=== PATIENT | female | born 1965 | race Hispanic/Latino ===

== ENCOUNTER 2019-08-06 15:08 | Emergency (ER) | payer SELFPAY ==
[~2019-08-06 15:08] MED LIST: ACET1TAB12 PO; CIPR-278 PO; SULF1TAB42 PO
[2019-08-06] MEDS ORDERED: ASPIRIN 325 MG TABLET ONE (15:16)
[2019-08-06 15:26] LABS: BASOPHILS % (AUTO) 0.3 % (0.0-5.0); EOSINOPHILS % (AUTO) 1.9 % (0.0-8.0); HEMATOCRIT 40.9 % (36-48); LYMPHOCYTES % (AUTO) 48.1 % (21.0-51.0); MEAN CORPUSCULAR HEMOGLOBIN 30.5 pg (27.0-33.0); MEAN CORPUSCULAR HGB CONC 34.2 g/dL (32.0-36.0); MEAN CORPUSCULAR VOLUME 89.1 fL (79-99); MONOCYTES % (AUTO) 7.6 % (3.0-13.0); NEUTROPHILS % (AUTO) 41.6 % (40.0-77.0); PLATELET COUNT (AUTO) 333 K/uL (130-400); RED BLOOD CELL COUNT(AUTO) 4.59 MIL/uL (4.00-5.50); RED CELL DISTRIBUTION WIDTH 11.7 % (11.0-15.5); WHITE BLOOD COUNT (AUTO) 12.6 K/uL (4.8-10.8)
[2019-08-06 15:35] LABS: CREATININE 0.9 mg/dL (0.5-1.5); POTASSIUM 3.7 mmol/L (3.5-5.1)
[2019-08-06 15:37] LABS: INR 0.95 (0.85-1.15); PARTIAL THROMBOPLASTIN TIME 29.5 SEC (26.3-35.5); PROTHROMBIN TIME 10.3 SEC (9.6-11.6)
[2019-08-06 15:39] LABS: ALBUMIN 4.1 g/dL (3.5-5.0); BILIRUBIN,TOTAL 0.3 mg/dL (0.2-1.0); TOTAL PROTEIN, SERUM 8.5 g/dL (6.0-8.3)
[2019-08-06 16:26] LABS: B-TYPE NATRIURETIC PEPTIDE 14 pg/mL (0-100)
== END 2019-08-06 18:40 | disposition home or self-care (01) ==
LOC: EDH 15:08
DX: R07.89 Other chest pain (principal)
CPT/HCPCS: 36415; 71045; 80053; 82550; 83880; 84484; 85025; 85610; 85730; 93005

== ENCOUNTER 2019-08-31 10:32 | Emergency (ER) | payer MEDICAID, OTHER ==
[2019-08-31] MEDS ORDERED: KETOROLAC TROMETHAMINE 15MG/ML ONE (11:40)
[2019-08-31] MEDS ORDERED: CYCLOBENZAPRINE HCL 10 MG TABLET ONE (11:41)
== END 2019-08-31 13:51 | disposition home or self-care (01) ==
LOC: EDH 10:32
DX: S23.3XXA Sprain of ligaments of thoracic spine, initial encounter (principal); X58.XXXA Exposure to other specified factors, initial encounter; Y93.89 Activity, other specified; Y92.89 Other specified places as the place of occurrence of the external cause; Y99.8 Other external cause status
CPT/HCPCS: 36415; 71045; 80053; 81001; 82150; 82550; 83690; 84484; 85025; 93005; 96374; 99285; J1885

== ENCOUNTER 2019-09-12 21:31 | Inpatient (IN) | payer MEDICAID, OTHER ==
[~2019-09-12] VITALS: Ht 160 cm; Wt 81.6 kg
[2019-09-12] MEDS ORDERED: ONDANSETRON HCL 4 MG/2 ML VIAL ONE (22:06)
[2019-09-12 22:26] LABS: BASOPHILS % (AUTO) 0.4 % (0.0-5.0); EOSINOPHILS % (AUTO) 0.5 % (0.0-8.0); HEMATOCRIT 37.7 % (36-48); LYMPHOCYTES % (AUTO) 19.3 % (21.0-51.0); MEAN CORPUSCULAR HEMOGLOBIN 30.4 pg (27.0-33.0); MEAN CORPUSCULAR VOLUME 86.9 fL (79-99); MONOCYTES % (AUTO) 8.5 % (3.0-13.0); NEUTROPHILS % (AUTO) 67.1 % (40.0-77.0); PLATELET COUNT (AUTO) 274 K/uL (130-400); RED BLOOD CELL COUNT(AUTO) 4.34 MIL/uL (4.00-5.50); RED CELL DISTRIBUTION WIDTH 11.4 % (11.0-15.5); WHITE BLOOD COUNT (AUTO) 13.8 K/uL (4.8-10.8)
[2019-09-12 22:47] LABS: ALBUMIN 3.5 g/dL (3.5-5.0); BILIRUBIN,TOTAL 0.5 mg/dL (0.2-1.0); CREATININE 2.5 mg/dL (0.5-1.5); POTASSIUM 3.1 mmol/L (3.5-5.1)
[2019-09-12 22:56] LABS: APPEARANCE,URINE Clear (CLEAR); BILIRUBIN,URINE Negative (NEGATIVE); COLOR,URINE Yellow (YELLOW); GLUCOSE, URINE (UA) Negative (NEGATIVE); KETONES,URINE Negative (NEGATIVE); LEUKOCYTE ESTERASE ,URINE Trace (NEGATIVE); NITRATE,URINE Negative (NEGATIVE); OCCULT BLOOD,URINE Trace (NEGATIVE); PH,URINE 5.5 (5.0-8.0); PROTEIN,URINE Trace mg/dL (NEGATIVE); UROBILINOGEN,URINE 0.2 mg/dL (0.2-1.0)
[2019-09-12 23:33] LABS: BACTERIA,URINE None Seen /HPF (None Seen); SQUAMOUS EPITHELIAL CELL,UR Few /HPF (0-2)
[2019-09-13] MEDS ORDERED: MORPHINE SULFATE 4 MG/1ML SYG ONE (00:15)
[2019-09-13] MEDS: SODIUM CHLORIDE 0.9% 1000ML 1,000 ML IV SCH ×7 (00:22→23:51)
[2019-09-13] MEDS: POTASSIUM CHLORIDE 20 MEQ ERTAB PO SCH ×2 (00:30→23:52)
[2019-09-13] MEDS ORDERED: ACETAMINOPHEN 325 MG TAB PO PRN (00:30)
[2019-09-13] MEDS ORDERED: LACTULOSE 20 GM/30 ML UDCUP PO PRN (00:30)
[2019-09-13] MEDS ORDERED: POTASSIUM CHLORIDE 10% ELIXIR 20 MEQ/15 ML UDCUP ONE (01:30)
[2019-09-13 02:25] VITALS: BP 144/74
[2019-09-13] MEDS ORDERED: ONDA8TAB65 PO (03:07)
[2019-09-13] MEDS: MORPHINE SULFATE 2 MG/ML 1ML SYG IV PRN (04:04)
[2019-09-13 04:12] VITALS: BP 119/61
[2019-09-13 05:37] LABS: BASOPHILS % (AUTO) 0.4 % (0.0-5.0); EOSINOPHILS % (AUTO) 0.6 % (0.0-8.0); LYMPHOCYTES % (AUTO) 23.5 % (21.0-51.0); MEAN CORPUSCULAR HEMOGLOBIN 30.2 pg (27.0-33.0); MEAN CORPUSCULAR HGB CONC 34.1 g/dL (32.0-36.0); MEAN CORPUSCULAR VOLUME 88.5 fL (79-99); MONOCYTES % (AUTO) 8.2 % (3.0-13.0); NEUTROPHILS % (AUTO) 63.6 % (40.0-77.0); PLATELET COUNT (AUTO) 239 K/uL (130-400); RED BLOOD CELL COUNT(AUTO) 3.84 MIL/uL (4.00-5.50); RED CELL DISTRIBUTION WIDTH 11.5 % (11.0-15.5)
[2019-09-13 06:06] LABS: CREATININE 2.2 mg/dL (0.5-1.5); POTASSIUM 3.8 mmol/L (3.5-5.1)
[2019-09-13 08:00] VITALS: BP 130/67
[2019-09-13] MEDS ORDERED: PAMIDRONATE DISODIUM 90MG VIAL 90 MG in SODIUM CHLORIDE 0.9% 1000ML 1,000 ML IV SCH (08:45)
[2019-09-13] MEDS: ENOXAPARIN SODIUM 40 MG/0.4 ML SYRINGE SQ SCH (10:54)
[2019-09-13] MEDS: FAMOTIDINE 20MG TAB 20 MG TAB PO SCH ×2 (10:55→19:25)
[2019-09-13 11:38] VITALS: BP 138/72
[2019-09-13] MEDS: ONDANSETRON HCL 4 MG/2 ML VIAL IV PRN (13:25)
--- NOTE | 2019-09-13 15:00 | NUR ---
FLEET ENEMA X 1 GIVEN
[2019-09-13 16:00] VITALS: BP 154/76
[2019-09-13] MEDS: LACTULOSE 20 GM/30 ML UDCUP PO SCH ×3 (16:00→23:15)
--- NOTE | 2019-09-13 16:56 | NUR ---
NICOLE PLAN PATIENT BEING TAKEN DOWN TO RADIOLOGY. PENELOPE WILL CONTINUE TO FOLLOW. Addendum: 09/13/19 at 1656 by LUZ RODRIGEZ RN CM Amended: Links added.
[2019-09-13] MEDS: ACETAMINOPHEN 325 MG TAB PO PRN (19:11)
[2019-09-13 20:12] VITALS: BP 133/80
[2019-09-14 00:16] VITALS: BP 136/72
[2019-09-14] MEDS: SODIUM CHLORIDE 0.9% 1000ML 1,000 ML IV SCH ×6 (01:24→18:17)
[2019-09-14] MEDS: MORPHINE SULFATE 2 MG/ML 1ML SYG IV PRN ×2 (01:24→10:41)
[2019-09-14] MEDS: LACTULOSE 20 GM/30 ML UDCUP PO SCH ×5 (04:00→19:55)
[2019-09-14 04:16] VITALS: BP 134/71
[2019-09-14 06:14] LABS: BASOPHILS % (AUTO) 0.6 % (0.0-5.0); EOSINOPHILS % (AUTO) 1.1 % (0.0-8.0); LYMPHOCYTES % (AUTO) 22.5 % (21.0-51.0); MEAN CORPUSCULAR HEMOGLOBIN 29.4 pg (27.0-33.0); MEAN CORPUSCULAR HGB CONC 33.1 g/dL (32.0-36.0); MEAN CORPUSCULAR VOLUME 88.9 fL (79-99); MONOCYTES % (AUTO) 4.9 % (3.0-13.0); NUCLEATED RED BLOOD CELLS 0.2 % (0.0-0.19); PLATELET COUNT (AUTO) 220 K/uL (130-400); RED BLOOD CELL COUNT(AUTO) 4.05 MIL/uL (4.00-5.50); RED CELL DISTRIBUTION WIDTH 11.7 % (11.0-15.5)
[2019-09-14] MEDS: ONDANSETRON HCL 4 MG/2 ML VIAL IV PRN (06:30)
[2019-09-14] MEDS: ACETAMINOPHEN 325 MG TAB PO PRN ×2 (06:33→22:22)
[2019-09-14 06:39] LABS: BILIRUBIN,TOTAL 0.6 mg/dL (0.2-1.0); CREATININE 2.1 mg/dL (0.5-1.5); PHOSPHORUS 3.2 mg/dL (2.5-4.9); TOTAL PROTEIN, SERUM 7.2 g/dL (6.0-8.3)
[2019-09-14 06:46] LABS: POTASSIUM 2.7 mmol/L (3.5-5.1)
--- NOTE | 2019-09-14 07:55 | NUR ---
[id number] called the hospitalist answering service [id number] Dr Shane Mcintosh here aware of critical lab ,new order given for potassium of 2.7 following orders Addendum: 09/14/19 at 1108 by TRISH DAMON RN RN Amended: Links added.
[2019-09-14 08:00] VITALS: BP 129/72
[2019-09-14] MEDS: POLYETHYLENE GLYCOL 3350 17 GM POWD.PACK PO SCH (08:27)
[2019-09-14] MEDS: FAMOTIDINE 20MG TAB 20 MG TAB PO SCH ×2 (08:28→19:54)
[2019-09-14] MEDS: ENOXAPARIN SODIUM 40 MG/0.4 ML SYRINGE SQ SCH (08:29)
[2019-09-14] MEDS: POTASSIUM CHLORIDE 20 MEQ ERTAB PO SCH ×2 (08:30→18:38)
[2019-09-14 11:12] VITALS: BP 132/75
[2019-09-14 16:59] VITALS: BP 160/74
[2019-09-14] MEDS ORDERED: POTASSIUM CHLORIDE 20 MEQ ERTAB PO PRN (17:15)
[2019-09-14] MEDS ORDERED: CALCITONIN 200 UNITS/ML 2 ML VIAL SQ SCH (17:15)
[2019-09-14] MEDS ORDERED: POTASSIUM CHLORIDE 10MEQ/100ML 100 ML IV PRN ×2 (17:15)
[2019-09-14] MEDS ORDERED: POTASSIUM CHLORIDE 10% ELIXIR 20 MEQ/15 ML UDCUP PO PRN (17:15)
--- NOTE | 2019-09-14 18:11 | NUR ---
CM NOTE/IA MEET WITH PATIENT IN ROOM. PER PATIENT, LIVES WITH SPOUSE, INDEPENDENT WITH ADLS, NO DME IN USE, DRIVES AND FEELS SAFE TO RETURN HOME ONCE DISCHARGED. PER PATENT, HAS NOT SEE DR. MANCUSO IN YEARS AND IS A SELF REFERRAL. SELF REFERRAL PACKETS AND GOOD RX GIVEN TO PATIENT, VERBALIZED UNDERSTANDING OF INFO ON PACKETS. Addendum: 09/14/19 at 1812 by CORDELL OCHOA RN CM Amended: Links added.
[2019-09-14 19:50] VITALS: BP 130/84
[2019-09-14] MEDS: CALCITONIN 3.7 ML AEROSOL NS SCH (22:09)
[2019-09-15 00:25] VITALS: BP 110/59
[2019-09-15] MEDS: SODIUM CHLORIDE 0.9% 1000ML 1,000 ML IV SCH ×3 (03:12→09:15)
[2019-09-15 04:35] VITALS: BP 122/69
[2019-09-15 05:29] LABS: BASOPHILS % (AUTO) 0.6 % (0.0-5.0); EOSINOPHILS % (AUTO) 1.4 % (0.0-8.0); HEMATOCRIT 33.3 % (36-48); LYMPHOCYTES % (AUTO) 17.3 % (21.0-51.0); MEAN CORPUSCULAR HEMOGLOBIN 30.5 pg (27.0-33.0); MEAN CORPUSCULAR HGB CONC 34.2 g/dL (32.0-36.0); MONOCYTES % (AUTO) 4.9 % (3.0-13.0); NEUTROPHILS % (AUTO) 68.3 % (40.0-77.0); PLATELET COUNT (AUTO) 208 K/uL (130-400); RED BLOOD CELL COUNT(AUTO) 3.74 MIL/uL (4.00-5.50); RED CELL DISTRIBUTION WIDTH 11.5 % (11.0-15.5); WHITE BLOOD COUNT (AUTO) 7.9 K/uL (4.8-10.8)
[2019-09-15 05:48] LABS: ALBUMIN 2.7 g/dL (3.5-5.0); BILIRUBIN,TOTAL 0.4 mg/dL (0.2-1.0); CREATININE 1.7 mg/dL (0.5-1.5); TOTAL PROTEIN, SERUM 6.6 g/dL (6.0-8.3)
[2019-09-15 07:57] VITALS: BP 131/77
[2019-09-15] MEDS: LACTULOSE 20 GM/30 ML UDCUP PO SCH ×4 (08:00→15:13)
[2019-09-15] MEDS: POLYETHYLENE GLYCOL 3350 17 GM POWD.PACK PO SCH (08:17)
[2019-09-15] MEDS: ENOXAPARIN SODIUM 40 MG/0.4 ML SYRINGE SQ SCH (08:17)
[2019-09-15] MEDS: FAMOTIDINE 20MG TAB 20 MG TAB PO SCH (08:17)
[2019-09-15] MEDS: CALCITONIN 3.7 ML AEROSOL NS SCH (08:18)
[2019-09-15] MEDS ORDERED: MAGNESIUM 2GM PREMIX 50ML 50 ML IV PRN (09:30)
[2019-09-15 11:25] VITALS: BP 109/53
== END 2019-09-15 18:40 | disposition home or self-care (01) | DRG 691 ==
LOC: EDH 21:31 → EDHIP 21:32 → 3DH 09-13 02:09
PROVIDERS: ADMIT Internal Medicine; ATTEND Internal Medicine
DX: C90.00 Multiple myeloma not having achieved remission (principal); N17.9 Acute kidney failure, unspecified; D72.829 Elevated white blood cell count, unspecified; D64.9 Anemia, unspecified; E86.9 Volume depletion, unspecified; E83.52 Hypercalcemia; E87.6 Hypokalemia; K59.00 Constipation, unspecified; N18.9 Chronic kidney disease, unspecified; Z85.820 Personal history of malignant melanoma of skin; Z83.3 Family history of diabetes mellitus; Z80.49 Family history of malignant neoplasm of other genital organs; Z82.49 Family history of ischemic heart disease and other diseases of the circulatory system
CPT/HCPCS: 36415; 72100; 74021; 77075; 80048; 80053; 81001; 82040; 82306; 82330; 82550; 83690; 83735; 83883; 83970; 84100; 84132; 84484; 85025; 86334; 93005; 99291; G0378; J0630; J1650; J2270; J2405; J2430; J3475; J7030